=== PATIENT | female | born 1950 | race Caucasian/White ===

== ENCOUNTER 2023-06-03 13:51 | Observation (INO) ==
--- NOTE | 2023-06-03 14:37 | XRay Report ---
SINGLE VIEW CHEST CLINICAL HISTORY: Atypical chest pain. FINDINGS: An AP, portable, upright chest radiograph is obtained. No prior studies are available for c omparison at the time of dictation. The cardiomediastinal silhouette is unremarkable. Emphysematous c hange is suspected. Nonspecific interstitial thickening is likely chronic. There is minimal bibasilar scarring/atelectasis. No airspace consolidation or large pleural effusion is identified. No pneumoth orax is seen. The skeletal structures are osteopenic. The bony thorax is grossly intact. Arthritic ch narayan is seen in the shoulders. IMPRESSION: No acute cardiopulmonary abnormality. ACT 112: Negative or not required by law. Electronically signed by: Bernabe Fulton M.D. 06/03/2023 2:36 PM
[2023-06-03 14:46] LABS: Basophils # (auto) 0.01 K/uL (0.00-0.20); Basophils % (auto) 0.2 %; Hematocrit (blood only) 42.9 % (37.0-47.0); Hemoglobin 14.5 g/dl (12.0-16.0); Immature Granulocytes # (auto) 0.01 K/uL (0.01-0.20); Immature Granulocytes % (auto) 0.2 %; Lymphocytes # (auto) 0.65 K/uL (1.20-3.40); Lymphocytes % (auto) 14.8 %; Mean Corpuscular Hemoglobin 30.3 pg (25.0-34.0); Mean Corpuscular Hgb Conc 33.8 g/dL (32.0-36.0); Mean Corpuscular Volume 89.6 fL (80.0-100.0); Mean Platelet Volume 10.3 fL (9.4-12.4); Monocytes # (auto) 0.45 K/uL (0.11-0.59); Monocytes % (auto) 10.2 %; Neutrophils # (auto) 3.28 K/uL (1.40-6.50); Neutrophils % (auto) 74.6 %; Platelet Count 169 K/uL (130-400); RDW Coefficient of Variation 13.1 % (11.5-14.5); RDW Standard Deviation 43.3 fL (36.4-46.3); Red Blood Count 4.79 M/uL (4.20-5.40)
[2023-06-03] MEDS ORDERED: SODIUM CHLORIDE 0.9% 1,000 ML IV ONE (14:52)
--- NOTE | 2023-06-03 14:53 | Emergency Department Note ---
Impression & Plan Respiratory arrest, COVID, Syncope ED Provider Note NAME: LEONOR LOVING AGE: 72 SEX: F : 1950 ARRIVES VIA: Walk-In INFORMANT: Patient, ED PROVIDER(S): Lamberto Lyons DO CHIEF COMPLAINT: Syncope HPI: The patient is a 72-year-old female who has no significant past medical history who presented to the emergency department for an evaluation of syncope. The patient had a syncopal episode earlier today. She was recently diagnosed with COVID-19. Her significant other states that she was sitting in the chair and appeared to be ill. He noticed that she was not breathing. She appeared pale. He lowered her to the ground and delivered multiple rescue breaths. The patient started to come around and then became awake and alert. The patient was brought to the emergency department for further evaluation. The patient denies having any chest pain at this time. She received no CPR. ROS: See above HPI for pertinent positives & negatives. A total of 10 systems reviewed and were otherwise negative. PAST MEDICAL HISTORY: See Below PAST SURGICAL HISTORY: See Below FAMILY HISTORY: See Below SOCIAL HISTORY: See Below HOME MEDICATIONS: See Below ALLERGIES: See Below VITALS: See Below PHYSICAL EXAMINATION: GENERAL: Patient is awake alert in no acute distress patient is resting comfortably and showing no signs of anxiety EYES: The conjunctivae are clear. The pupils are round and reactive. EARS, NOSE, MOUTH AND THROAT: The nose is without any evidence of any deformity. NECK: The neck is nontender and supple. RESPIRATORY: Normal respiratory effort is noted there is no evidence of wheezing rhonchi or rales CARDIOVASCULAR: Regular rate and rhythm noted there no murmurs rubs or gallops normal S1 normal S2. GASTROINTESTINAL: The abdomen is soft. Abdomen is nontender. MUSCULOSKELETAL/EXTREMITIES: There is no evidence of gross deformity full range of motion is noted in the hips and shoulders. SKIN: There is no obvious evidence of any rash. There are no petechiae, pallor or cyanosis noted. NEUROLOGIC: Patient is awake alert and oriented x3 MEDICAL DECISION MAKING: The patient is a 72-year-old female who presented to the emergency department for an evaluation of syncope. The patient was recently diagnosed with COVID-19. Both her and her significant other were diagnosed with COVID-19 and was symptomatic. The patient significant other came home this evening and found the patient not breathing. The patient's significant other started doing rescue breathing and lowered her to the floor. She did not wake up right away and there was concern the patient may have had syncope or possibly respiratory arrest. Given the ambiguity I discussed patient's laboratory and radiographic studies with the on-call [facility] hospitalist. They have agreed to evaluate the patient in the emergency department for further management and disposition. I discussed patient's laboratory and radiographic studies with her. EKG showed no ischemic changes. Triage Nursing notes reviewed. Prior medical records reviewed Vital Signs: reviewed and remarkable for no significant abnormalities Differential diagnosis: Vasovagal event, dehydration, infection, hypoglycemia, electrolyte abnormalities, cardiac sources, intracerebral event, pulmonary embolism, seizure, toxicologic, neurologic, as well as other pathologies. ER treatment provided: See below Diagnostics interpreted by me: ECG: EKG was obtained in the emergency department. My interpretation is normal sinus rhythm at 94 bpm. Low voltage was noted throughout. There is no ectopy. No previous tracing was available. Cardiac Monitoring: An order was placed for continuous cardiac monitoring. The monitor shows a rate of 77 bpm with sinus rhythm. Laboratory studies: As stated above and show below. Imaging studies: See below. Radiographic imaging was reviewed by myself Consultation(s): I discussed this case with Dr. Morrison who is on-call for the [facility] hospitalist group. Past Med/Surg History Medical History COVID-19 Social History Smoking Status: Never smoker Preferred Language: Jamaican Feels Safe at Home: Yes Allergies Allergies Allergy/AdvReac Type Severity Reaction Status Date / Time No Known Allergies Allergy Unverified 06/03/23 17:30 Home Meds Home Medications Medication Instructions Recorded Confirmed No Known Home Medications 06/03/23 06/03/23 Results & Data (ED) Vital Signs Vital Signs - 24 hr 06/03/23 13:54 06/03/23 14:35 06/03/23 14:35 Temperature 36.2 C L Temperature Source Temporal Artery Scan Oral Pulse Rate 101 H Pulse Rate [Left Apical] Respiratory Rate 18 Respiratory Effort / Characteristics Non-Labored Spontaneous Respiratory Depth Normal Respiratory Pattern Regular Blood Pressure 132/88 Blood Pressure [Left Arm] Blood Pressure Mean 102 Blood Pressure Mean [Left Arm] Pulse Oximetry 98 Oxygen Delivery Method Room Air Room Air Sepsis Recent Fever Within 48 Hours No Sepsis New/Unexplained Change in Mental Status N/A Sepsis Action Taken by Nursing No Action Required 06/03/23 14:35 06/03/23 14:36 06/03/23 15:16 Temperature Temperature Source Pulse Rate 91 H Pulse Rate [Left Apical] 97 H Respiratory Rate 21 Respiratory Effort / Characteristics Non-Labored Respiratory Depth Normal Respiratory Pattern Blood Pressure Blood Pressure [Left Arm] 132/87 Blood Pressure Mean Blood Pressure Mean [Left Arm] 102 Pulse Oximetry 94 Oxygen Delivery Method Room Air Room Air Sepsis Recent Fever Within 48 Hours Sepsis New/Unexplained Change in Mental Status Sepsis Action Taken by Nursing 06/03/23 15:30 06/03/23 16:00 Temperature Temperature Source Pulse Rate 84 83 Pulse Rate [Left Apical] Respiratory Rate 24 22 Respiratory Effort / Characteristics Respiratory Depth Respiratory Pattern Blood Pressure 122/83 134/86 Blood Pressure [Left Arm] Blood Pressure Mean 96 102 Blood Pressure Mean [Left Arm] Pulse Oximetry 95 96 Oxygen Delivery Method Room Air Room Air Sepsis Recent Fever Within 48 Hours Sepsis New/Unexplained Change in Mental Status Sepsis Action Taken by [facility] Medications Current Medication List: was personally reviewed by me Laboratory Data Attestation: I reviewed the patient's lab results. 06/03/23 14:25 06/03/23 14:25 Lab Results 06/03/23 06/03/23 06/03/23 Range/Units 14:25 14:25 14:25 WBC 4.40 L (4.8-10.8) K/ul RBC 4.79 (4.20-5.40) M/uL Hgb 14.5 (12.0-16.0) g/dl Hct 42.9 (37.0-47.0) % MCV 89.6 (80.0-100.0) fL MCH 30.3 (25.0-34.0) pg MCHC 33.8 (32.0-36.0) g/dL RDW Std Deviation 43.3 (36.4-46.3) fL RDW Coeff of Vicky 13.1 (11.5-14.5) % Plt Count 169 (130-400) K/uL MPV 10.3 (9.4-12.4) fL Immature Gran % (Auto) 0.2 % Neut % (Auto) 74.6 % Lymph % (Auto) 14.8 % Wheeler % (Auto) 10.2 % Eos % (Auto) 0.0 % Baso % (Auto) 0.2 % Neut # (Auto) 3.28 (1.40-6.50) K/uL Lymph # (Auto) 0.65 L (1.20-3.40) K/uL Wheeler # (Auto) 0.45 (0.11-0.59) K/uL Eos # (Auto) 0.00 (0.00-0.50) K/uL Baso # (Auto) 0.01 (0.00-0.20) K/uL Immature Gran # (Auto) 0.01 (0.01-0.20) K/uL PT 10.8 (9.0-12.0) Seconds INR 1.0 (0.9-1.1) APTT 29.8 (21.0-31.0) Seconds PTT Ratio 1.1 Sodium 136 (136-145) mmol/L Potassium 3.6 (3.5-5.1) mmol/L Chloride 101 (98-107) mmol/L Carbon Dioxide 26 (21-32) mmol/L Anion Gap 9 (3-11) BUN 15 (6-23) mg/dl Creatinine 0.91 (0.6-1.2) mg/dl Est Cr Clr Drug Dosing 46.0 ml/min Est GFR ( Amer) 74.1 ml/min Est GFR (Non-Af Amer) 63.9 ml/min BUN/Creatinine Ratio 16.5 (10-20) Glucose 161 H (70-99(Fasting)) mg/dl Calcium 9.1 (8.6-10.3) mg/dl Magnesium 2.1 (1.7-2.4) mg/dl Total Bilirubin 0.4 (0.2-1.0) mg/dl AST 23 (13-39) U/L ALT 16 (7-52) U/L Alkaline Phosphatase 70 (34-104) U/L Troponin I High Sens 2.7 (0-14) pg/ml Total Protein 7.8 (6.0-8.3) gm/dl Albumin 4.5 (3.4-5.0) gm/dl Globulin 3.3 (2.5-4.0) gm/dl Albumin/Globulin Ratio 1.4 (0.9-2) SARS-CoV-2 (PCR) (Negative) Influenza Type A (PCR) (Neg) Influenza Type B (PCR) (Neg) RSV (RT-PCR) (Neg) 06/03/23 Range/Units 15:14 WBC (4.8-10.8) K/ul RBC (4.20-5.40) M/uL Hgb (12.0-16.0) g/dl Hct (37.0-47.0) % MCV (80.0-100.0) fL MCH (25.0-34.0) pg MCHC (32.0-36.0) g/dL RDW Std Deviation (36.4-46.3) fL RDW Coeff of Vicky (11.5-14.5) % Plt Count (130-400) K/uL MPV (9.4-12.4) fL Immature Gran % (Auto) % Neut % (Auto) % Lymph % (Auto) % Wheeler % (Auto) % Eos % (Auto) % Baso % (Auto) % Neut # (Auto) (1.40-6.50) K/uL Lymph # (Auto) (1.20-3.40) K/uL Wheeler # (Auto) (0.11-0.59) K/uL Eos # (Auto) (0.00-0.50) K/uL Baso # (Auto) (0.00-0.20) K/uL Immature Gran # (Auto) (0.01-0.20) K/uL PT (9.0-12.0) Seconds INR (0.9-1.1) APTT (21.0-31.0) Seconds PTT Ratio Sodium (136-145) mmol/L Potassium (3.5-5.1) mmol/L Chloride (98-107) mmol/L Carbon Dioxide (21-32) mmol/L Anion Gap (3-11) BUN (6-23) mg/dl Creatinine (0.6-1.2) mg/dl Est Cr Clr Drug Dosing ml/min Est GFR ( Amer) ml/min Est GFR (Non-Af Amer) ml/min BUN/Creatinine Ratio (10-20) Glucose (70-99(Fasting)) mg/dl Calcium (8.6-10.3) mg/dl Magnesium (1.7-2.4) mg/dl Total Bilirubin (0.2-1.0) mg/dl AST (13-39) U/L ALT (7-52) U/L Alkaline Phosphatase (34-104) U/L Troponin I High Sens (0-14) pg/ml Total Protein (6.0-8.3) gm/dl Albumin (3.4-5.0) gm/dl Globulin (2.5-4.0) gm/dl Albumin/Globulin Ratio (0.9-2) SARS-CoV-2 (PCR) POSITIVE A* (Negative) Influenza Type A (PCR) Negative (Neg) Influenza Type B (PCR) Negative (Neg) RSV (RT-PCR) Negative (Neg) Administered Medications Discontinued Medications Sodium Chloride (Nss) 1,000 mls @ 999 mls/hr IV .Q1H1M ONE Stop: 06/03/23 15:52 Last Infusion: 06/03/23 18:28 Dose: 0 mls/hr Documented By: [facility] Admin: 06/03/23 15:19 Dose: 999 mls/hr Documented By: [facility] Sodium Chloride (Nss) 500 mls @ 999 mls/hr IV .Q31M ONE Stop: 06/03/23 18:05 Last Admin: 06/03/23 18:30 Dose: 999 mls/hr Documented By: [facility] Imaging Data Attestation: I personally reviewed and interpreted this imaging study as follows: My Impression: 1 view chest x-ray was obtained in the emergency department. My interpretation is no free air or definite infiltrate, final report below Radiologist's Impression: Chest X-Ray 06/03/23 13:59 SINGLE VIEW CHEST CLINICAL HISTORY: Atypical chest pain. FINDINGS: An AP, portable, upright chest radiograph is obtained. No prior studies are available for comparison at the time of dictation. The cardiomediastinal silhouette is unremarkable. Emphysematous change is suspected. Nonspecific interstitial thickening is likely chronic. There is minimal bibasilar scarring/atelectasis. No airspace consolidation or large pleural effusion is identified. No pneumothorax is seen. The skeletal structures are osteopenic. The bony thorax is grossly intact. Arthritic change is seen in the shoulders. IMPRESSION: No acute cardiopulmonary abnormality. ACT 112: Negative or not required by law. Electronically signed by: Bernabe Fulton M.D. 06/03/2023 2:36 PM Discharge Plan Visit Data Chief Complaint: Syncope Stated Complaint: SHAKEY, COLD, UNCOUNCIOUSNESS ED Provider: Lamberto Lyons Discharge Problem: Respiratory arrest, COVID, Syncope Patient Disposition: Admitted As Inpatient Discharge Instructions Interventions: ED Discharge Assessment Last Done: 06/03/23 18:42
[2023-06-03 15:07] LABS: Albumin Globulin Ratio 1.4 (0.9-2); Albumin Level 4.5 gm/dl (3.4-5.0); BUN Creatinine Ratio 16.5 (10-20); Bilirubin,Total 0.4 mg/dl (0.2-1.0); Calcium 9.1 mg/dl (8.6-10.3); Est GFR (African American) 74.1 ml/min; Est GFR (Non-African American) 63.9 ml/min; Globulin 3.3 gm/dl (2.5-4.0); Potassium 3.6 mmol/L (3.5-5.1); Total Protein 7.8 gm/dl (6.0-8.3)
[2023-06-03 15:13] LABS: Troponin I High Sensitivity 2.7 pg/ml (0-14)
[2023-06-03 15:16] LABS: Partial Thromboplastin Ratio 1.1; Partial Thromboplastin Time 29.8 Seconds (21.0-31.0); Prothrombin Time 10.8 Seconds (9.0-12.0)
[2023-06-03 16:08] LABS: Influenza A virus by PCR Negative (Neg); Influenza B virus by PCR Negative (Neg); RSV by PCR Negative (Neg)
[2023-06-03 16:16] LABS: SARS CoV2 RNA(COVID-19) Ceph POSITIVE (Negative)
--- NOTE | 2023-06-03 16:20 | History & Physical Report ---
Date of Service June 03, 2023 Assessment & Plan (1) COVID: Plan: Currently asymptomatic No medications recommended (2) Syncope: Plan: Suspect vasovagal with cold air, presyncopal symptoms in setting of reduced oral intake NSS total 1,5L bolus to be given Recommend observation overnight given resuscitative efforts given, monitor on telemetry for arrhythmia If feeling well tomorrow anticipate discharge home. Plan VTE Prophylaxis - Lovenox 40mg SQ daily Diet - regular Disposition - observation status to med/tele Admission and Anticipated Discharge Date Admission Date: June 03, 2023 History of Present Illness Chief Complaint: Concern for stopping breathing, syncope Primary Care Provider: SLADE Sanhcez Kemi Llamas is a 72 year old female who presents to the ER with a non- breathing episode. She was recent tested COVID positive on a home test. She reports actually feeling better today and she went to let the dogs outside and on opening the door to the cold air she started feeling dizzy and went to sit down. When her went over to her he did not think she was breathing and laid her down on the ground and she was unresponsive so he started mouth to mouth resuscitation efforts. The patient does not remember any of this. She appeared pale and lifeless per her . She started to come around and then was alert and was brought to the emergency room by her . She did not receive chest compressions. She does not pursue routine doctor check ups and because she has felt well she has not seen a doctor since when she had shingles. She is retired. Never had COVID before. Had the first two vaccinations for COVID but no boosters. She is currently feeling fine and back to her normal self with no symptoms. Allergies Allergy/AdvReac Type Severity Reaction Status Date / Time No Known Allergies Allergy Unverified 06/03/23 17:30 Home Medications Medication Instructions Recorded Confirmed Type No Known Home Medications 06/03/23 06/03/23 History Past Med/Surg History Medical History COVID-19 Social History Smoking Status: Never smoker Hx Alcohol Use: Yes Alcohol type: wine Hx Substance Use: No Preferred Language: Italian Brick Off Bearer Required: No Beliefs That Will Affect Care: None Current Living Situation: Spouse Current Living Situation Comment: Lives at home with spouse Feels Safe at Home: Yes Safety Concerns: Feels Safe At This Time Assistive Devices: Cane and Glasses Review of Systems Review of Systems: All systems reviewed & are unremarkable except as noted in HPI & below Physical Exam Constitutional: WD/WN, vitals as above Eyes: PERRL, conjunctivae normal, anicteric sclerae ENMT: external ear and nose normal, oropharynx normal Respiratory: normal respiratory effort, lungs clear to auscultation Cardiovascular: RRR, no murmur, no edema Gastrointestinal (Abdomen): normal bowel sounds, soft, nontender, no hepatosplenomegaly Musculoskeletal: no cyanosis or clubbing, extremities motor strength 5/5 Skin: no rashes, warm and dry Neurologic: moves all extremities and awake; not confused Psychiatric: A+Ox3, euthymic affect Genitourinary: no CVA tenderness Results & Data Results & Data Vital Signs (Past 12 Hours) Vital Signs Temp Pulse Pulse Resp BP BP Pulse Ox 06/03/23 16:00 83 22 134/86 96 06/03/23 15:30 84 24 122/83 95 06/03/23 15:16 97 H 21 132/87 94 06/03/23 14:36 91 H 06/03/23 14:35 06/03/23 14:35 06/03/23 13:54 36.2 C L 101 H 18 132/88 98 O2 Del Method 06/03/23 16:00 Room Air 06/03/23 15:30 Room Air 06/03/23 15:16 Room Air 06/03/23 14:36 06/03/23 14:35 Room Air 06/03/23 14:35 Room Air 06/03/23 13:54 Room Air Laboratory Results Abnormal lab results 06/03/23 06/03/23 06/03/23 Range/Units 14:25 14:25 15:14 WBC 4.40 L (4.8-10.8) K/ul Lymph # (Auto) 0.65 L (1.20-3.40) K/uL Glucose 161 H (70-99(Fasting)) mg/dl SARS-CoV-2 (PCR) POSITIVE A* (Negative) Diagnostic Findings SINGLE VIEW CHEST CLINICAL HISTORY: Atypical chest pain. FINDINGS: An AP, portable, upright chest radiograph is obtained. No prior studies are available for comparison at the time of dictation. The cardiomediastinal silhouette is unremarkable. Emphysematous change is suspected. Nonspecific interstitial thickening is likely chronic. There is minimal bibasilar scarring/atelectasis. No airspace consolidation or large pleural effusion is identified. No pneumothorax is seen. The skeletal structures are osteopenic. The bony thorax is grossly intact. Arthritic change is seen in the shoulders. IMPRESSION: No acute cardiopulmonary abnormality. Medications Administered ER Medications Given: Normal saline 1000ml bolus ECG Rate (beats per minute): 120 Rhythm: normal sinus Findings: + nonspecific-ST abn Comparison ECG Date: no prior available Code Status & VTE Plan Code Status Full VTE Prophylaxis Plan VTE Prophylaxis will be ordered: Yes PG Care Time/CCT Total # of Minutes Spent Total Time Spent with Patient: Total time spent is greater than 50% in coordination of care (as documented) at patient's floor/unit and/or counseling patient: Coding Level of Care Code 76870 INT INP/OBS CARE 2/55MIN Diagnoses COVID U07.1 Syncope R55
[2023-06-03] MEDS ORDERED: SODIUM CHLORIDE 0.9% 500 ML IV ONE (17:35)
--- NOTE | 2023-06-03 17:36 | Electrocardiogram Report ---
Test Reason : Blood Pressure : / mmHG Vent. Rate : 094 BPM Atrial Rate : 094 BPM P-R Int : 142 ms QRS Dur : 064 ms QT Int : 336 ms P-R-T Axes : 062 058 046 degrees QTc Int : 420 ms Normal sinus rhythm Low voltage QRS Nonspecific ST abnormality Abnormal ECG No previous ECGs available Confirmed by Reji Corral ([id number]) on 06/03/2023 5:36:19 PM Referred By: Confirmed By:Cuba Corral
[2023-06-03 18:11] LABS: Magnesium 2.1 mg/dl (1.7-2.4)
[2023-06-03] MEDS ORDERED: ACETAMINOPHEN 325 MG TAB PO PRN (18:41)
[2023-06-03] MEDS ORDERED: ENOXAPARIN INJ 40 MG/0.4 ML SYR SQ SCH (21:00)
--- NOTE | 2023-06-04 11:31 | Discharge Summary ---
Date of Service June 04, 2023 Admission HPI Per Admitting Provider Kemi Llamas is a 72 year old female who presents to the ER with a non- breathing episode. She was recent tested COVID positive on a home test. She reports actually feeling better today and she went to let the dogs outside and on opening the door to the cold air she started feeling dizzy and went to sit down. When her went over to her he did not think she was breathing and laid her down on the ground and she was unresponsive so he started mouth to mouth resuscitation efforts. The patient does not remember any of this. She appeared pale and lifeless per her . She started to come around and then was alert and was brought to the emergency room by her . She did not receive chest compressions. She does not pursue routine doctor check ups and because she has felt well she has not seen a doctor since when she had shingles. She is retired. Never had COVID before. Had the first two vaccinations for COVID but no boosters. She is currently feeling fine and back to her normal self with no symptoms. Principal Diagnosis Orthostatic hypotension, near syncope, viral illness, COVID positivity by nasal swab Discharge Exam General-alert and oriented x3, no fevers, no chills HEENT-head atraumatic and normocephalic, pupils equal and reactive to light, extraocular muscles intact Neck-no lymphadenopathy or thyromegaly, trachea midline Chest-clear to auscultation percussion. No rales, wheezing or rhonchi Cardiac-regular rate and rhythm, normal S1 and S2 Abdomen-normal bowel sounds, nontender, no hepatosplenomegaly Extremities-no cyanosis, clubbing, or edema Neuro-cranial nerves II through XII intact, motor and sensory function within normal limits, strength symmetrical , no focal deficits Psych-normal affect, normal mood Discharge Data Allergies Allergy/AdvReac Type Severity Reaction Status Date / Time No Known Allergies Allergy Unverified 06/03/23 17:30 Consultations 06/03/23 16:21 ED Decision to Admit Stat Hospital Course (1) COVID: She may have a viral syndrome. COVID positivity by nasal swab. She was instructed to take vitamin D daily. Symptomatic care (2) Syncope: Probably orthostatic related to volume depletion. Now resolved with IV fluids. (3) Volume depletion: Resolved with IV fluid resuscitation Plan Home today, June 04. She was instructed to take vitamin D supplement daily. Total Time Total Time Spent Total Time Spent (In Minutes): 45-minute Discharge Plan Discharge Items Patient Disposition: Home - Self-Care Reason For Visit: SYNCOPE Discharge Diagnosis: Volume depletion, orthostatic syncope, viral syndrome Activity: Resume your previous activity Non-emergency contact: Primary Care Provider Call non-emergency contact if: your symptoms worsen Follow-up/Referrals: Mary Tracy CRNP [Primary Care Provider] - Diet: Regular Addtl Attending Provider Instructions: Take a vitamin D supplement daily. Stay well-hydrated. Pending Studies at Discharge: No Stand-Alone Forms: [employer], Smoking Cessation Medications and DC Order Prescriptions: No Action No Known Home Medications Discharge Orders: Discharge Order (Routine); Ordered 06/04/23 Ordered By: Rodolfo Mackenzie Admission Data Admit Date/Time: 06/03/23 16:17 Attending Provider: Rodolfo Mackenzie Admit Provider: Sudhir Morrison Primary Care Provider: Mary Tracy Other Providers: Sudhir Morrison Coding Level of Care Code 37132 INP/OBS DISCH >30 MIN Diagnoses COVID U07.1 Syncope R55 Volume depletion E86.9
== END 2023-06-04 12:57 | disposition home or self-care (01) ==
LOC: EDINP 13:51 → ED 13:51 → SUATTDRO 16:17 → 2N 18:42